=== PATIENT | male | born 1965 | race Hispanic/Latino ===

== ENCOUNTER 2016-07-02 22:20 | Emergency (ER) | payer SELFPAY ==
[~2016-07-02] VITALS: Ht 165.1 cm; Wt 75.0 kg
[2016-07-02 22:24] VITALS: BP 136/86; PULSE 73; RESP 18; O2SAT 96
== END 2016-07-02 22:34 | disposition left against medical advice (07) ==
LOC: SED 22:22
DX: Z53.21 Procedure and treatment not carried out due to patient leaving prior to being seen by health care provider (principal)